=== PATIENT | male | born 1990 ===

== ENCOUNTER 2022-05-30 20:56 | Emergency (ER) | payer OTHER ==
[~2022-05-30] VITALS: Ht 165.1 cm; Wt 77.3 kg
[2022-05-30 21:16] LABS: COVID AG,FIA SOURCE NASAL SWAB
[2022-05-30 21:34] LABS: INFLUENZA TYPE A NEGATIVE FOR TYPE A (NEGATIVE); INFLUENZA TYPE B NEGATIVE FOR TYPE B (NEGATIVE)
[2022-05-30] MEDS ORDERED: ACETAMINOPHEN 500 MG TABLET PO ONE (21:45)
[2022-05-30] MEDS ORDERED: AMOX TR/POT CLAV 875 MG/125 MG TABLET PO ONE (21:45)
[2022-05-30] MEDS ORDERED: AMOX1TAB16 PO (21:47)
[2022-05-30] MEDS ORDERED: IBUP-1492 PO (21:47)
[2022-05-30 22:33] VITALS: BP 132/79
== END 2022-05-30 23:18 | disposition home or self-care (01) ==
LOC: EMS 20:58
DX: J32.9 Chronic sinusitis, unspecified (principal); Z20.822 Contact with and (suspected) exposure to COVID-19
CPT/HCPCS: 87804; 99283

== ENCOUNTER 2023-06-23 15:08 | Emergency (ER) | payer OTHER ==
[~2023-06-23] VITALS: Ht 170.2 cm; Wt 88.2 kg
[~2023-06-23 15:08] MED LIST: AMOX1TAB16 PO; IBUP-1492 PO
[2023-06-23 15:26] VITALS: BP 137/78; PULSE 90; RESP 14; TEMP 98.1
[2023-06-23] MEDS ORDERED: CEPH-558 PO (17:04)
[2023-06-23] MEDS: CEPHALEXIN MONOHYDRATE 500 MG CAPSULE PO ONE (17:15)
[2023-06-23] MEDS: IBUPROFEN 600 MG TABLET PO ONE (17:15)
[2023-06-23] MEDS: GENTAMICIN SULFATE 0.3% OPHTHALMIC SOLUTION 5 ML OD ONE (17:15)
== END 2023-06-23 17:19 | disposition home or self-care (01) ==
LOC: EMS 15:17
DX: H00.011 Hordeolum externum right upper eyelid (principal)
CPT/HCPCS: 99284; Z7502; Z7610